=== PATIENT | male | born 1995 | race Caucasian/White ===

== ENCOUNTER 2022-01-14 09:21 | Emergency (ER) | payer OTHER ==
[~2022-01-14] VITALS: Ht 182.9 cm; Wt 105.0 kg
[2022-01-14] MEDS ORDERED: IBUPROFEN 600MG TABLET PO STA (10:43)
[2022-01-14 11:06] VITALS: BP 144/97
[2022-01-14] MEDS ORDERED: IBUP-2029 PO (11:09)
[2022-01-14] MEDS ORDERED: AMOX-494 MT (11:09)
== END 2022-01-14 12:12 | disposition home or self-care (01) ==
LOC: ER 09:21
DX: J02.9 Acute pharyngitis, unspecified (principal)
CPT/HCPCS: 87070; 87430; 99283